=== PATIENT | female | born 1995 | race Caucasian/White ===

== ENCOUNTER 2021-10-14 05:19 | Emergency (ER) | payer SELFPAY ==
[~2021-10-14] VITALS: Ht 157.5 cm; Wt 45.4 kg
--- NOTE | 2021-10-14 06:10 | NUR ---
BIBSELF C/O LEFT SIDE ABD PAIN RAD TO L FLANK X 2 DAYS. PLACED COMFORTABLY IN BED. VITALS CHECKED.
--- NOTE | 2021-10-14 06:16 | NUR ---
URINE COLLECTED SENT TO LAB
--- NOTE | 2021-10-14 06:18 | NUR ---
CT SCAN DONE
--- NOTE | 2021-10-14 06:20 | NUR ---
DISCLAIMER SIGNED THAT PATIENT IS NOT
--- NOTE | 2021-10-14 06:30 | NUR ---
PEELED POTATO INSPECTOR AT BEDSIDE
[2021-10-14 06:43] LABS: BASOPHILS % (AUTO) 0.4 % (0.0-2.0); EOSINOPHILS % (AUTO) 1.9 % (0.0-6.0); HEMATOCRIT 39 % (33-45); LYMPHOCYTES # (AUTO) 1.7 K/uL (0.8-4.8); LYMPHOCYTES % (AUTO) 30.3 % (20.0-44.0); MEAN CORPUSCULAR HGB CONC 33 g/dl (31.0-36.0); MEAN CORPUSCULAR VOLUME 83 fL (82-100); MONOCYTES # (AUTO) 0.5 K/uL (0.1-1.30); MONOCYTES % (AUTO) 8.3 % (2.0-12.0); NEUTROPHILS # (AUTO) 3.3 K/uL (1.8-8.9); NEUTROPHILS % (AUTO) 59.1 % (43.0-81.0); PLATELET COUNT (AUTO) 279 K/uL (150-450); RED BLOOD CELL COUNT(AUTO) 4.71 MIL/uL (4.0-5.2); WHITE BLOOD COUNT (AUTO) 5.6 K/uL (4.3-11.0)
[2021-10-14 06:59] LABS: CALCIUM, SERUM 8.9 mg/dL (8.5-10.1); CREATININE 0.8 mg/dL (0.6-1.3)
[2021-10-14] MEDS ORDERED: MORPHINE SULFATE INJ 4 MG/ML DISP.SYRIN ONE (07:00)
[2021-10-14] MEDS ORDERED: ONDANSETRON HCL/PF 4 MG/2 ML VIAL ONE (07:00)
[2021-10-14] MEDS ORDERED: MORPHINE SULFATE INJ 2 MG/ML DISP.SYRIN IV ONE (07:00)
[2021-10-14] MEDS ORDERED: ONDANSETRON HCL/PF 4 MG/2 ML VIAL IVP ONE (07:00)
[2021-10-14 07:06] LABS: BILIRUBIN,URINE SMALL (NEGATIVE); COLOR,URINE YELLOW (YELLOW); LEUKOCYTE ESTERASE ,URINE NEGATIVE (NEGATIVE); NITRITE, URINE NEGATIVE (NEGATIVE); PROTEIN,URINE NEGATIVE (NEGATIVE); UGLUCOSE NEGATIVE (NEGATIVE); UROBILINOGEN,URINE 0.2 EU/dL (0.2)
[2021-10-14 07:14] LABS: ALBUMIN 4.3 g/dL (3.4-5.0); BILIRUBIN,DIRECT 0.1 mg/dL (0.0-0.2); BILIRUBIN,TOTAL 0.7 mg/dL (0.2-1.0); TOTAL PROTEIN, SERUM 7.3 g/dL (6.4-8.2)
--- NOTE | 2021-10-14 07:15 | NUR ---
RECEIVED ENDORSEMENT FROM KRAIG MCARTHUR. PATIENT IN BED AWAKE. ON RA WITH EVEN AND UNLABORED BREATHING. DENIES ABDOMINAL PAIN AT THIS TIME.
--- NOTE | 2021-10-14 07:15 | NUR ---
IV CANNULA INSERTED ON LEFT AC. PAIN MEDS GIVEN
--- NOTE | 2021-10-14 07:21 | NUR ---
ENDORSED PATIENT TO KRAIG FLORES.
[2021-10-14 07:23] LABS: BACTERIA,URINE MOD /HPF (None Seen); SQUAMOUS EPITHELIAL CELL,UR Many /HPF (None Seen)
[2021-10-14] MEDS ORDERED: ALBU18HF2 INH (09:07)
[2021-10-14] MEDS ORDERED: HYDR-4209 PO (09:07)
--- NOTE | 2021-10-14 09:34 | NUR ---
Written and verbal after care instructions given. Patient verbalizes understanding of instruction.
[2021-10-14 09:42] VITALS: BP 100/61
== END 2021-10-14 09:51 | disposition home or self-care (01) ==
LOC: ER 05:23
DX: N83.202 Unspecified ovarian cyst, left side (principal); Z60.2 Problems related to living alone; Z79.899 Other long term (current) drug therapy; Z91.018 Allergy to other foods
CPT/HCPCS: 36415; 74176; 76856; 80048; 80076; 81001; 83690; 84703; 85025; 96374; 96375; 99291; J2270; J2405

== ENCOUNTER 2021-11-04 03:01 | Emergency (ER) | payer MEDICAID ==
[~2021-11-04] VITALS: Ht 157.5 cm; Wt 47.6 kg
[~2021-11-04 03:01] MED LIST: ALBU18HF2 INH; HYDR-4209 PO
--- NOTE | 2021-11-04 03:26 | NUR ---
BIBS C/O N/VSINCE TODAY AM AFTER TAKING HALF OF PRESCRIBED NORCO FOR CYST DIAGNOSED X3 WEEKS AGO. STATES SHE HAS BEEN UNABLE TO TOLERATE ANY LIQUIDS ALL DAY AND HAS HAD MULTIPLE EPISODES OF EMESIS. PT AWAKE AND ALERT IN MILD DISCOMFORT RELATED TO NASUEA. ALL V/S WNL. WAS AT BEDSIDE FOR EVAL.
[2021-11-04] MEDS ORDERED: ONDANSETRON HCL/PF 4 MG/2 ML VIAL ONE ×2 (03:28→04:01)
[2021-11-04] MEDS ORDERED: ONDANSETRON HCL/PF 4 MG/2 ML VIAL IVP ONE (03:30)
[2021-11-04] MEDS ORDERED: KETOROLAC TROMETHAMINE INJ 30 MG/ML VIAL IV ONE (03:30)
[2021-11-04] MEDS ORDERED: IV NS 0.9% 1,000 ML BAG IV ONE (03:30)
[2021-11-04] MEDS ORDERED: KETOROLAC TROMETHAMINE INJ 30 MG/ML VIAL ONE (03:36)
--- NOTE | 2021-11-04 03:38 | NUR ---
20G IV LINE ESTABLISHED AT [facility]. BLOOD DRAWN AND SENT TO LAB.
[2021-11-04] MEDS ORDERED: ONDANSETRON HCL/PF 4 MG/2 ML VIAL IV ONE (04:00)
[2021-11-04 04:03] LABS: BASOPHILS % (AUTO) 0.4 % (0.0-2.0); EOSINOPHILS % (AUTO) 1.1 % (0.0-6.0); HEMATOCRIT 40 % (33-45); HEMOGLOBIN 13.1 g/dL (11.5-14.8); LYMPHOCYTES # (AUTO) 1.8 K/uL (0.8-4.8); LYMPHOCYTES % (AUTO) 29.2 % (20.0-44.0); MEAN CORPUSCULAR HGB CONC 33 g/dl (31.0-36.0); MEAN CORPUSCULAR VOLUME 83 fL (82-100); MONOCYTES # (AUTO) 0.4 K/uL (0.1-1.30); MONOCYTES % (AUTO) 6.8 % (2.0-12.0); NEUTROPHILS # (AUTO) 3.8 K/uL (1.8-8.9); NEUTROPHILS % (AUTO) 62.5 % (43.0-81.0); PLATELET COUNT (AUTO) 297 K/uL (150-450); RED BLOOD CELL COUNT(AUTO) 4.74 MIL/uL (4.0-5.2); WHITE BLOOD COUNT (AUTO) 6.1 K/uL (4.3-11.0)
[2021-11-04 04:10] LABS: ALBUMIN 4.6 g/dL (3.4-5.0); BILIRUBIN,TOTAL 0.9 mg/dL (0.2-1.0); CALCIUM, SERUM 9.4 mg/dL (8.5-10.1); CREATININE 0.7 mg/dL (0.6-1.3); POTASSIUM 3.4 mmol/L (3.5-5.1); TOTAL PROTEIN, SERUM 7.8 g/dL (6.4-8.2)
[2021-11-04] MEDS ORDERED: LORAZEPAM INJ 2 MG/ML VIAL ONE (04:41)
[2021-11-04] MEDS ORDERED: LORAZEPAM INJ 2 MG/ML VIAL IV ONE (05:00)
[2021-11-04] MEDS ORDERED: ONDA4TAB5 PO (05:15)
--- NOTE | 2021-11-04 05:23 | NUR ---
Patient discharged to home in stable condition. Written and verbal after care instructions given. Patient verbalizes understanding of instruction.IV removed. Catheter intact and site benign. Pressure and 4x4 applied to site. No bleeding noted.
[2021-11-04 05:24] VITALS: BP 109/66
== END 2021-11-04 05:24 | disposition home or self-care (01) ==
LOC: ER 03:02
DX: R11.2 Nausea with vomiting, unspecified (principal); F41.9 Anxiety disorder, unspecified; Z91.018 Allergy to other foods; Z60.2 Problems related to living alone; Z79.899 Other long term (current) drug therapy
CPT/HCPCS: 36415; 80053; 83690; 85025; 96361; 96374; 96375; 99284; J1885; J2060; J2405 ×2; J7030

== ENCOUNTER 2021-12-21 09:59 | Emergency (ER) | payer MEDICAID ==
[~2021-12-21] VITALS: Ht 157.5 cm; Wt 47.6 kg
[~2021-12-21 09:59] MED LIST changes: +ONDA4TAB5 PO
--- NOTE | 2021-12-21 10:10 | NUR ---
Dr Avila at for [facility].
[2021-12-21] MEDS ORDERED: ALPR0.5T PO (10:24)
[2021-12-21] MEDS ORDERED: LORAZEPAM 1 MG TABLET ONE (10:28)
[2021-12-21] MEDS ORDERED: LORAZEPAM 1 MG TABLET PO ONE (10:30)
[2021-12-21 10:52] VITALS: BP 108/60
--- NOTE | 2021-12-21 10:52 | NUR ---
Patient discharged to home in stable condition. Written and verbal after care instructions given. Patient verbalizes understanding of instruction.
== END 2021-12-21 10:53 | disposition home or self-care (01) ==
LOC: ER 10:01
DX: F41.9 Anxiety disorder, unspecified (principal); Z91.018 Allergy to other foods; Z60.2 Problems related to living alone; Z79.899 Other long term (current) drug therapy